=== PATIENT | male | born 1985 ===

== ENCOUNTER 2018-02-06 12:16 | Emergency (ER) | payer OTHER ==
[~2018-02-06] VITALS: Ht 182.9 cm; Wt 97.1 kg
[2018-02-06] MEDS ORDERED: GLYCOPYRROLATE1 MG (12:52)
[2018-02-06] MEDS ORDERED: PERCOCET 5-3251 EACH PO (15:54)
== END 2018-02-06 16:57 | disposition home or self-care (01) ==
LOC: ER 12:16
DX: S90.31XA Contusion of right foot, initial encounter (principal); V29.9XXA Motorcycle rider (driver) (passenger) injured in unspecified traffic accident, initial encounter; Y93.89 Activity, other specified; Y92.488 Other paved roadways as the place of occurrence of the external cause; Y99.8 Other external cause status